=== PATIENT | male | born 1950 | race Caucasian/White ===

== ENCOUNTER 2016-10-29 12:52 | Day surgery (SDC) | payer MEDICARE, OTHER ==
--- NOTE | ~2016-10-29 | EGD ---
EGD REPORT [facility] [address] [place]. [address] NAME: TRACI FRANCOIS : [birth year] STATUS : REG [facility]#: [id number] AGE: 65 ADM/REG DATE : 10/29/16 MR#: [id number] REPORT SERV DATE: 10/29/16 DICTATED BY: RAYMOND VELASQUEZ DATE: 10/29/16 REPORT STATUS : Draft TRANSCRIBED BY: [facility] DATE: 10/29/16 Endoscopy Center Patient Name: Traci Francois Date of : 1950 Attending MD: LELAND VELASQUEZ MD Procedure Date No Time: 10/29/2016 Procedure: Upper GI endoscopy Indications: Gastro-esophageal reflux disease, Heme positive stool, Weight loss Referring MD: JUDAH JEFF MD Medicines: See the Anesthesia note for documentation of the administered medications Complications: No immediate complications. Estimated blood loss: None. Procedure: Pre-Anesthesia Assessment: - ASA Grade Assessment: III - A patient with severe systemic disease. - Prior to the procedure, a History and Physical was performed, and patient medications and allergies were reviewed. The patient's tolerance of previous anesthesia was also reviewed. The risks and benefits of the procedure and the sedation options and risks were discussed with the patient. All questions were answered, and informed consent was obtained. Prior Anticoagulants: The patient has taken aspirin and Plavix (clopidogrel), last doses were 1 day prior to procedure. After reviewing the risks and benefits, the patient was deemed in satisfactory condition to undergo the procedure. After obtaining informed consent, the endoscope was passed under direct vision. Throughout the procedure, the patient's blood pressure, pulse, and oxygen saturations were monitored continuously. The GIF H190 [id number] was introduced through the mouth, and advanced to the second part of duodenum. The upper GI endoscopy was accomplished without difficulty. The patient tolerated the procedure well. Findings: The examined duodenum was normal. Diffuse mild inflammation characterized by congestion (edema) and erythema was found in the stomach. Biopsies were taken with a cold forceps for histology. The cardia and gastric fundus were normal on retroflexion. The examined esophagus was normal. Impression: - Normal examined duodenum. EGD REPORT [address] [address] NAME: TRACI FRANCOIS : [birth year] [place] [facility] [place] [id number] AGE: 65 ADM/REG DATE : 10/29/16 MR#: [id number] REPORT SERV DATE: 10/29/16 DICTATED BY: RAYMOND VELASQUEZ DATE: 10/29/16 REPORT STATUS : Draft TRANSCRIBED BY: [facility] [facility] DATE: 10/29/16 - Gastritis. Biopsied. - Normal esophagus. Recommendation: - Patient has a contact number available for emergencies. The signs and symptoms of potential delayed complications were discussed with the patient. Return to normal activities tomorrow. Written discharge instructions were provided to the patient. - Regular diet. - Discharge patient to home. - Continue present medications. - Await pathology results. Procedure Code(s): --- Professional --- 10564, Esophagogastroduodenoscopy, flexible, transoral; with biopsy, single or multiple Diagnosis Code(s): --- Professional --- K29.70, Gastritis, unspecified, without bleeding K21.9, Gastro-esophageal reflux disease without esophagitis R19.5, Other fecal abnormalities R63.4, Abnormal weight loss CPT copyright 2013 [employer]. All rights reserved. The codes documented in this report are preliminary and upon used car make ready worker review may be revised to meet current compliance requirements. LELAND VELASQUEZ MD 10/29/2016 2:27 PM This report has been signed electronically. Number of Addenda: 0 Note Initiated On: 10/29/2016 2:13 PM Scope Withdrawal Time 0 hours 0 minutes 0 seconds [id number] [id number]
--- NOTE | ~2016-10-29 | EGD ---
EGD REPORT [facility] [address] [place] [address] NAME: TRACI FRANCOIS : [birth year] STATUS : REG [facility]#: [id number] AGE: 65 ADM/REG DATE : 10/29/16 MR#: [id number] REPORT SERV DATE: 10/29/16 DICTATED BY: DATE: REPORT STATUS : Draft TRANSCRIBED BY: [employer] DATE: 10/29/16 Endoscopy Center Patient Name: Traci Francois Date of : 1950 Attending MD: LELAND VELASQUEZ MD Procedure Date No Time: 10/29/2016 Procedure: Colonoscopy Indications: Heme positive stool, Weight loss Referring MD: JUDAH JEFF MD Medicines: See the Anesthesia note for documentation of the administered medications Complications: No immediate complications. Procedure: Pre-Anesthesia Assessment: - ASA Grade Assessment: III - A patient with severe systemic disease. - Prior to the procedure, a History and Physical was performed, and patient medications and allergies were reviewed. The patient's tolerance of previous anesthesia was also reviewed. The risks and benefits of the procedure and the sedation options and risks were discussed with the patient. All questions were answered, and informed consent was obtained. Prior Anticoagulants: The patient has taken aspirin and Plavix (clopidogrel), last doses were 1 day prior to procedure. After reviewing the risks and benefits, the patient was deemed in satisfactory condition to undergo the procedure. After I obtained informed consent, the scope was passed under direct vision. Throughout the procedure, the patient's blood pressure, pulse, and oxygen saturations were monitored continuously. The PCF [id number] was introduced through the anus and advanced to the terminal ileum. The ileocecal valve, appendiceal orifice, terminal ileum and rectum were photographed. The entire colon was examined. The colonoscopy was performed without difficulty. The patient tolerated the procedure well. The quality of the bowel preparation was adequate. Findings: The perianal and digital rectal examinations were normal. The terminal ileum appeared normal. Three sessile polyps were found in the cecum. The polyps were 4 to 7 mm in size. These polyps were removed with a hot snare. Resection and retrieval were complete. Four sessile polyps were found in the proximal ascending colon. The polyps were 3 to 13 mm in size. These polyps were removed with a hot EGD REPORT [place] [address] [place]. [address] NAME: TRACI FRANCOIS : [birth year] STATUS : REG [facility]#: [id number] AGE: 65 ADM/REG DATE : 10/29/16 MR#: [id number] REPORT SERV DATE: 10/29/16 DICTATED BY: DATE: REPORT STATUS : Draft TRANSCRIBED BY: [employer] DATE: 10/29/16 snare. Resection and retrieval were complete. Two hemostatic clips were successfully placed. This was done to prevent bleeding. Eight sessile polyps were found in the transverse colon. The polyps were 3 to 7 mm in size. These polyps were removed with a hot snare. Resection and retrieval were complete. A sessile polyp was found in the sigmoid colon. The polyp was 15 mm in size. The polyp was removed with a hot snare. Resection and retrieval were complete. Non-bleeding internal hemorrhoids were found during retroflexion and were Grade I (internal hemorrhoids that do not prolapse). Few smaller polyps not removed Impression: - The examined portion of the ileum was normal. - Three 4 to 7 mm polyps in the cecum. Resected and retrieved. - Four 3 to 13 mm polyps in the proximal ascending colon. Resected and retrieved. Clips were placed. - Eight 3 to 7 mm polyps in the transverse colon. Resected and retrieved. - One 15 mm polyp in the sigmoid colon. Resected and retrieved. - Non-bleeding internal hemorrhoids. - Few smaller polyps not removed Recommendation: - Patient has a contact number available for emergencies. The signs and symptoms of potential delayed complications were discussed with the patient. Return to normal activities tomorrow. Written discharge instructions were provided to the patient. - Regular diet. - Discharge patient to home. - Continue present medications. - Await pathology results. - Repeat colonoscopy in 3 months for surveillance. Procedure Code(s): --- Professional --- 21759, Colonoscopy, flexible, proximal to splenic flexure; with removal of tumor(s), polyp(s), or other lesion(s) by snare technique Diagnosis Code(s): --- Professional --- K64.0, First degree hemorrhoids D12.5, Benign neoplasm of sigmoid colon D12.3, Benign neoplasm of transverse colon D12.2, Benign neoplasm of ascending colon D12.0, Benign neoplasm of cecum R19.5, Other fecal abnormalities EGD REPORT [facility] [address] [address] NAME: TRACI FRANCOIS : [birth year] [place] [facility] [place] [id number] AGE: 65 ADM/REG DATE : 10/29/16 MR#: [id number] REPORT SERV DATE: 10/29/16 DICTATED BY: DATE: REPORT STATUS : Draft TRANSCRIBED BY: [employer] DATE: 10/29/16 R63.4, Abnormal weight loss CPT copyright 2013 [employer]. All rights reserved. The codes documented in this report are preliminary and upon flatbed truck driver review may be revised to meet current compliance requirements. LELAND VELASQUEZ MD 10/29/2016 3:20 PM This report has been signed electronically. Number of Addenda: 0 Note Initiated On: 10/29/2016 2:09 PM Scope Withdrawal Time 0 hours 41 minutes 1 second [address] [id number]
[~2016-10-29 12:52] MED LIST: AMB10 PO; ASAB PO; ASABAYER PO; AZULFENTAB PO; COLCH6 PO; CRESTOR10 PO; DCN100 PO; DURA25 TOP; IMDUR60 PO; ISORDTITRA PO; KAPIDEX60 MG PO; LOP25 PO; METHOC500B PO; NEXIUM40 PO; NTG150 SL; P5 PO; PEP20 PO; PLAVIX PO; PRIN10 PO; RAN500 PO; RANEXA1000 MG PO; ROXICODONE15 MG PO; SYMBICORT 80/4.1 INH INH; TOPXL25 PO; TOPXL50 PO; TRAZ50 PO; Z300 PO; ZOCOR10 PO
== END 2016-10-29 23:59 | disposition home or self-care (01) ==
LOC: DMU 12:52
PROVIDERS: Internal Medicine Gastroenterology
PROC: 0DBL8ZZ Excision of Transverse Colon, Via Natural or Artificial Opening Endoscopic (ICD-10-PCS; 2016-10-29)
PROC: 0DBK8ZZ Excision of Ascending Colon, Via Natural or Artificial Opening Endoscopic (ICD-10-PCS; 2016-10-29)
PROC: 0DBH8ZZ Excision of Cecum, Via Natural or Artificial Opening Endoscopic (ICD-10-PCS; 2016-10-29)
PROC: 0DBH8ZZ Excision of Cecum, Via Natural or Artificial Opening Endoscopic (ICD-10-PCS; principal; 2016-10-29 13:30)
PROC: 0DBN8ZZ Excision of Sigmoid Colon, Via Natural or Artificial Opening Endoscopic (ICD-10-PCS; 2016-10-29 13:30)
DX: D12.0 Benign neoplasm of cecum (principal); D12.2 Benign neoplasm of ascending colon; D12.3 Benign neoplasm of transverse colon; D12.5 Benign neoplasm of sigmoid colon; K29.70 Gastritis, unspecified, without bleeding; K21.9 Gastro-esophageal reflux disease without esophagitis; R19.5 Other fecal abnormalities; R63.4 Abnormal weight loss
CPT/HCPCS: 88305